=== PATIENT | female | born 1975 | race Caucasian/White ===

== ENCOUNTER 2020-12-25 11:23 | Emergency (ER) | payer OTHER, SELFPAY ==
--- NOTE | 2020-12-25 14:02 | HMH.EDUTC ---
[facility] [place] Clinical Impression: Encounter for laboratory testing for COVID-19 virus Disposition: Home, Self-Care Condition on Discharge: Good Instructions: Preventing the Spread of Coronavirus Discharge Instructions Additional Instructions: You have been tested for COVID19. Please quarantine yourself as if you are positive until test results received. Referrals: Duran Delgadillo [Primary Care Provider] - Time of Disposition: 14:08 Medical Decision Making - [place] Inquiry Pt receiving controlled substance: No [facility] [place] - General Stated complaint: covid test/symptoms Time Seen by Provider: 12/25/20 14:02 - History of Present Illness Provider Complaint: Loss of taste and smell since yesterday. No other symptoms. Onset (ago): day(s) (1) Relieving factors: none Exacerbating factors: none Associated symptoms: denies other symptoms Treatments prior to arrival: none - Related Data Allergies Allergy/AdvReac Type Severity Reaction Status Date / Time Penicillin Allergy Unknown Uncoded 04/16/17 15:13 [facility] History - Hepatitis A Screen Attestation statement:: This patient has been screened for Hepatitis A risk factors. I have reviewed the patient's past medical history: Yes ROS Obtained: Yes All systems reviewed & no additional complaints - Constitutional Constitutional: Reports other (loss of taste and smell) Physical Exam - General General appearance: alert, in no apparent distress - Head Head exam: normocephalic - Eye Eye exam: Present: PERRL - ENT ENT exam: Present: normal oropharynx, TM's normal bilaterally - Neck Neck exam: Present: normal inspection - Chest Chest inspection: Present: normal inspection, symmetric chest wall rise - Respiratory Respiratory exam: Present: normal lung sounds bilaterally - Cardiovascular Cardiovascular exam: Present: regular rate, normal rhythm - Neurological Exam Neurological exam: Present: alert, oriented X3 - Psychiatric Psychiatric exam: Present: normal affect, normal mood - Skin Skin exam: Present: warm, dry, intact
[2020-12-25 14:30] VITALS: BP 140/99; PULSE 76; RESP 12; TEMP 36.8; O2SAT 100; BMI 29.6
[2020-12-25 14:43] VITALS: BP 0/0; PULSE 0; RESP 0; TEMP -17.7; TEMP 0
== END 2020-12-25 14:44 | disposition home or self-care (01) ==
PROVIDERS: Emergency Provider Physician Assistant; PCP Family Medicine
DX: U07.1 COVID-19 (principal)
CPT/HCPCS: 99202; G0463; U0003

== ENCOUNTER → 2021-02-10 11:51 | Outpatient (CLI) | payer OTHER, SELFPAY | PROVIDERS: PCP Family Medicine; Visit Provider Family Medicine | DX: G47.30 Sleep apnea, unspecified (principal); R06.83 Snoring | CPT/HCPCS: G0399 ==

== ENCOUNTER 2022-01-15 14:41 | Emergency (ER) | payer BC, SELFPAY ==
[2022-01-15 15:30] VITALS: BMI 27.4
--- NOTE | 2022-01-15 15:31 | HMH.EDGENADL ---
Discharge Plan Disposition Patient Disposition: Home, Self-Care Referrals Follow up/Referrals: Duran Delgadillo [Primary Care Provider] - See instructions Clinical Impressions Clinical Impression: Palpitations Instructions Patient Instructions: Cardiac Arrhythmia (Alternative Therapy) Print Language Print Language: Guatemalan Discharge ED Provider: Trip Zuniga General Adult HPI General Chief complaint: Arrhythmia/Palpitations Stated complaint: heart is fluttering Time Seen by Provider: 01/15/22 15:31 Mode of Arrival: Ambulatory History of Present Illness HPI narrative: 46-year-old female without significant past medical history, presents with chief complaint of palpitations has been ongoing overall for about a year but worse over the past 3days has been more noticeable, states she had recently been started on a new asthma medication. Denies any chest pain, shortness of breath, nausea, vomiting, diaphoresis, lightheadedness or near syncopal episodes. No treatments sought for this prior to this visit, no clear exacerbating factors. She denies excessive caffeine use, denies any other new medications, thyroid issues Related Data Allergies Allergy/AdvReac Type Severity Reaction Status Date / Time Penicillin Allergy Unknown Uncoded 04/16/17 15:[address] [facility] Medical History (Updated 01/15/22 @ 17:12 by Trip Zuniga MD) Palpitations Social History Smoking Status: Never smoker alcohol intake: never current occupational status: employed Travel in the last 8 weeks: None ROS Obtained: Yes Systems reviewed as appropriate & no additional complaints except as documented Constitutional Constitutional: Reports system reviewed and no additional complaints, except as documented Eyes Eyes: Reports system reviewed and no additional complaints, except as documented ENT Ears, Nose, Mouth, and Throat: Reports system reviewed and no additional complaints, except as documented Cardiovascular Cardiovascular: Reports as per HPI and Reports palpitations Respiratory Respiratory: Reports system reviewed and no additional complaints, except as documented Gastrointestinal Gastrointestingal: Reports system reviewed and no additional complaints, except as documented Genitourinary Female Genitourinary: Reports system reviewed and no additional complaints, except as documented Musculoskeletal Musculoskeletal: Reports system reviewed and no additional complaints, except as documented Integumentary/Breasts Skin/Breast: Reports system reviewed and no additional complaints, except as documented Neurologic Neurologic: Reports system reviewed and no additional complaints, except as documented Endocrine Endocrine: Reports as per HPI and Reports palpitations Hematologic/Lymphatic Henatologic/Lymphatic: Reports system reviewed and no additional complaints, except as documented Allergic/Immunologic Allergic/Immunologic: Reports system reviewed and no additional complaints, except as documented Physical Exam General General appearance: alert and in no apparent distress Head Head exam: atraumatic, normocephalic and normal inspection Eye Eye exam: Present normal appearance, PERRL and EOMI ENT ENT exam: Present normal exam, normal oropharynx, mucous membranes moist, TM's normal bilaterally and normal external ear exam Neck Neck exam: Present normal inspection, full ROM and trachea midline; Absent meningismus or lymphadenopathy Chest Chest inspection: Present normal inspection and symmetric chest wall rise; Absent tenderness Respiratory Respiratory exam: Present normal lung sounds bilaterally; Absent respiratory distress Cardiovascular Cardiovascular exam: Present regular rate and normal rhythm; Absent JVD Abdominal Exam Abdominal exam: Present soft and normal bowel sounds; Absent distention, tenderness or guarding Extremities Exam Extremities exam: Present normal inspection, full ROM and norm
--- NOTE | 2022-01-15 15:32 | XR_ITS ---
FINAL REPORT CLINICAL HISTORY: SOB/CP FINDINGS: The heart size is normal. The mediastinum is normal. There is no focal infiltrate or edema. There are no pleural effusions. There is no pneumothorax. There is no osseous abnormality. IMPRESSION: No acute cardiopulmonary process Reviewed, Interpreted and Dictated by Margarito Franks MD Transcribed by Michael Greer Authenticated and [facility]
--- NOTE | 2022-01-15 15:34 | ECG_ITS ---
APPROVED REPORT Exam: Resting ECG HR:76 bpm ECG Measurements Heart Rate 76 AXES SD 154 P 44 QRSd 85 QRS 23 QT 361 T 37 QTc 391 Conclusion SINUS RHYTHM POSSIBLE RIGHT VENTRICULAR CONDUCTION DELAY [RSR (QR) IN V1/V2] BORDERLINE ECG UNCONFIRMED REPORT Electronically signed by : Wiliam Rubalcava MD 01/16/2022 21:10:31
[2022-01-15 15:35] VITALS: BP 148/90; PULSE 88; RESP 16; TEMP 36.8; O2SAT 98; BMI 29.9
[2022-01-15 16:00] VITALS: BP 139/94; PULSE 67; RESP 16; O2SAT 98
[2022-01-15 16:11] LABS: Basophils # 0.2 K/mm3 (0-0.2); Basophils % 1.7 % (0.1-2.0); Chloride 102 mmol/L (98-107); Eosinophils # 0.5 K/mm3 (0.0-0.4); Eosinophils % 3.6 % (0.1-12.0); Hematocrit 40.3 % (37.0-47.0); Hemoglobin 13.7 g/dL (12.2-16.2); Lymphocytes # 3.4 K/mm3 (0.7-4.5); Lymphocytes % 25.6 % (10-50); Mean Corpuscular HGB Conc 33.9 g/dL (31.8-35.4); Mean Corpuscular Hemoglobin 29.6 pg (27.0-31.2); Mean Corpuscular Volume 87.4 fl (81-99); Mean Platelet Volume 8.4 fl (7.4-10.4); Monocytes # 0.6 K/mm3 (0.1-1.0); Monocytes % 4.4 % (1.7-9.3); Neutrophils # 8.7 K/mm3 (1.8-7.8); Neutrophils % 64.7 % (37.0-80.0); Platelet Count 373 K/mm3 (142-424); Red Blood Count 4.61 M/mm3 (4.20-5.40); Red Cell Distribution Width 14.1 % (11.5-17.5); Sodium 140 mmol/L (136-145); White Blood Count 13.4 K/mm3 (4.8-10.8)
[2022-01-15 16:13] LABS: Blood Urea Nitrogen 7 mg/dl (7-17); Creatinine Clearance Estimated 132 mL/min (50-200); Estimated Glomerular Filt Rate 91 ml/min (>60); GFR (African American) 110 ML/MIN (>60)
[2022-01-15 16:14] LABS: Alanine Aminotransferase 32 U/L (12-78); Albumin Level 4.2 g/dl (3.5-5.0); Albumin/Globulin Ratio 1.4 (1.1-1.8); Alkaline Phosphatase 74 U/L (38-126); Aspartate Amino Transferase 33 U/L (14-36); Calcium 8.6 mg/dl (8.4-10.2); Carbon Dioxide 30 mmol/L (22.0-30.0); Glucose 134 mg/dl (74-100); Magnesium 1.8 mg/dl (1.6-2.3); Total Protein,Serum 7.2 g/dl (6.3-8.2)
[2022-01-15 16:15] LABS: Bilirubin,Total < 0.1 mg/dl (0.2-1.3)
[2022-01-15 16:28] LABS: Troponin I < 0.01 ng/ml (0.00-0.034)
[2022-01-15 16:30] VITALS: BP 147/92; PULSE 72; RESP 18; O2SAT 98
[2022-01-15 17:00] VITALS: BP 137/92; PULSE 69; RESP 16; O2SAT 99
[2022-01-15 18:00] VITALS: BP 135/86; PULSE 76; RESP 18; TEMP 36.8; O2SAT 99
== END 2022-01-15 18:00 | disposition home or self-care (01) ==
LOC: UTC 14:47 → ER 15:22
PROVIDERS: Emergency Provider Emergency Medicine; PCP Family Medicine
DX: R00.2 Palpitations (principal); R53.82 Chronic fatigue, unspecified; J45.909 Unspecified asthma, uncomplicated; Z88.0 Allergy status to penicillin
CPT/HCPCS: 71045; 80053; 83735; 84484; 85025; 93005; 99284

== ENCOUNTER 2024-06-12 02:19 | Emergency (ER) | payer BC, SELFPAY ==
[2024-06-12 02:20] VITALS: BP 162/85; PULSE 73; RESP 18; TEMP 36.8; O2SAT 100; BMI 32.6
--- NOTE | 2024-06-12 02:20 | ECG_ITS ---
APPROVED REPORT Exam: Resting ECG HR:69 bpm ECG Measurements Heart Rate 69 AXES MD 167 P 62 QRSd 80 QRS 51 QT 373 T 48 QTc 392 Conclusion SINUS RHYTHM NORMAL ECG Electronically signed by : DILLON VAZQUEZ, 06/12/2024 05:56:47
[2024-06-12 02:53] LABS: Alanine Aminotransferase 48 U/L (12-78); Albumin Level 4.5 g/dl (3.5-5.0); Albumin/Globulin Ratio 1.5 (1.1-1.8); Alkaline Phosphatase 76 U/L (38-126); Anion Gap 15.7 mEq/L (5-15); Aspartate Amino Transferase 37 U/L (14-36); Bilirubin,Total 0.4 mg/dl (0.2-1.3); Blood Urea Nitrogen 9 mg/dl (7-17); Calcium 9.1 mg/dl (8.4-10.2); Carbon Dioxide 28 mmol/L (22.0-30.0); Chloride 99 mmol/L (98-107); Creatinine Clearance Estimated 120 mL/min (50-200); Estimated Glomerular Filt Rate 67 ml/min (>60); GFR (African American) 82 ML/MIN (>60); Glucose 119 mg/dl (74-100); Potassium 3.7 mmoL/L (3.5-5.1); Sodium 139 mmol/L (136-145); Total Protein,Serum 7.5 g/dl (6.3-8.2)
[2024-06-12 02:57] LABS: Basophils # 0.1 K/mm3 (0-0.2); Basophils % 0.7 % (0.1-2.0); Eosinophils # 0.4 K/mm3 (0.0-0.4); Eosinophils % 3.4 % (0.1-12.0); Hematocrit 40.1 % (37.0-47.0); Hemoglobin 12.8 g/dL (12.2-16.2); Lymphocytes # 5.1 K/mm3 (0.7-4.5); Lymphocytes % 42.9 % (10-50); Mean Corpuscular HGB Conc 31.9 g/dL (31.8-35.4); Mean Corpuscular Hemoglobin 27.5 pg (27.0-31.2); Mean Corpuscular Volume 86.2 fl (81-99); Mean Platelet Volume 10.5 fl (7.4-10.4); Monocytes # 0.5 K/mm3 (0.1-1.0); Monocytes % 4.2 % (1.7-9.3); Neutrophils # 5.7 K/mm3 (1.8-7.8); Neutrophils % 48.6 % (37.0-80.0); Platelet Count 376 K/mm3 (142-424); Red Blood Count 4.65 M/mm3 (4.20-5.40); Red Cell Distribution Width 13.1 % (11.5-17.5); White Blood Count 11.8 K/mm3 (4.8-10.8)
[2024-06-12 03:10] LABS: Troponin I < 0.01 ng/ml (0.00-0.034)
[2024-06-12] MEDS: BELLADONNA ALKALOIDS 60 ML ML PO (03:20)
--- NOTE | 2024-06-12 03:51 | XR_ITS ---
PROCEDURE INFORMATION: Exam: XR Chest Exam date and time: 06/12/2024 3:52 AM Age: 48 years old Clinical indication: Pain; Chest pressure; Additional info: Cp TECHNIQUE: Imaging protocol: Radiologic exam of the chest. Views: 2 views. COMPARISON: CR XR CHEST PORTABLE 01/15/2022 3:47 PM FINDINGS: Lungs: Unremarkable. No consolidation. Pleural spaces: Unremarkable. No pleural effusion. No pneumothorax. Heart/Mediastinum: Unremarkable. No cardiomegaly. Bones/joints: Unremarkable. IMPRESSION: No acute findings.
--- NOTE | 2024-06-12 03:59 | HMH.EDCP ---
Discharge Plan Disposition Patient Disposition: Home, Self-Care Condition: Good Prescriptions Prescriptions: New sucralfate 1 gram tablet 1 g PO Q6H 7 Days Qty: 28 0RF Referrals Follow up/Referrals: Davide Dc II, MD [Staff Physician] - See instructions (chest pain, hx reflux/esophagitis, knows she needs EGD, prefers to be here) Provider,Referral, [Primary Care Provider] - See instructions Activity Restrictions/Add. Instructions Additional Instructions/Restrictions: You were evaluated in the ER and are appropriate for discharge at this time. Take the prescribed sucralfate as directed. Continue taking your other home medications as previously prescribed. Make an appointment with your primary care doctor for reevaluation in 2 to 3 days. Return to the ER with new, worsening, or otherwise concerning symptoms. Clinical Impressions Clinical Impression: Chest pain Print Language Print Language: Tajik Discharge ED Provider: Sussy Presley General Chief Complaint: Chest Pain Stated Complaint: Chest Pain Time Seen by Provider: 06/12/24 02:55 Mode of Arrival: Ambulatory Source of Information: Patient Limitations: No Limitations Description of Symptoms (Recalled from ER Triage Doc. by RN): Pt presents to ED for CP X 1 week. Pt states the pain was 6/10 while in bed, however now it is 1/10. Pt states it is midsternal and radiates L and R. Pt denies sickness, denies any muscle strain. Pt is A&O*4 and is well appearing. History of Present Illness HPI narrative: 48-year-old female presents to the ER for 1 week of chest pain. She states when laying down tonight it was a 6 out of 10 and she was not able to sleep, now it is a 1 out of 10. She states it is midsternal radiating bilaterally. She does describe a history of esophagitis and has been referred to an loss prevention officer. She states she is supposed to have an esophageal scraping, EGD, and colonoscopy coming up but she has not done it because she is a workaholic . Patient reports no cardiac history, she is not having vomiting or diarrhea, she states her pain starts in her abdomen and indicates to the mid epigastric region and then radiates upward. She states it is better now that she is upright. She takes omeprazole daily at home. No difficulty breathing. No fevers, chills, dysuria, hematuria, headache, dizziness, or other associated symptoms. Related Data Previous Rx's ?Medication ?Instructions ?Recorded sucralfate 1 gram tablet 1 g PO Q6H 1 week #28 tabs 06/12/24 Allergies Allergy/AdvReac Type Severity Reaction Status Date / Time Penicillin Allergy Unknown Uncoded 04/16/17 15:13 [facility] Disclaimer: The information contained in this section may have been updated after the patient was seen, as this information can be updated by other users. Medical History (Updated 06/12/24 @ 03:59 by Sussy Presley MD) Palpitations Social History (Updated 01/15/22 @ 17:13 by Trip Zuniga MD) Smoking Status: Former smoker alcohol intake: never current occupational status: employed Travel in the last 8 weeks: None ROS Obtained: Yes Systems reviewed as appropriate & no additional complaints except as documented Per HPI Physical Exam General General appearance: alert and in no apparent distress Head Head exam: atraumatic and normocephalic Eye Eye exam: Present PERRL and EOMI ENT ENT exam: Present mucous membranes moist Neck Neck exam: Present normal inspection and full ROM Chest Chest inspection: Present symmetric chest wall rise; Absent tenderness Respiratory Respiratory exam: Present normal lung sounds bilaterally; Absent respiratory distress, wheezes or stridor Cardiovascular Cardiovascular exam: Present regular rate and normal rhythm Abdominal Exam Abdominal exam: Present soft; Absent distention, tenderness, guarding or rebound Extremities Exam Extremities exam: Present full ROM Neurological Exam Neurological exam: Present alert, oriented X3, CN II-XII intact and normal gait; Absent motor sensory deficit Psychiatric Psychiatric exam: Present normal affect and normal mood Skin Skin exam: Present warm and dry HEART Score HEART Score HEART Score assessment performed?: Yes History (anamnesis): Slightly suspicious ECG: Normal Age: 45-65 years Risk factors: 1-2 risk factors Troponin: </= normal limit HEART Score: 2 Critical Care Critical Care Time Critical Care Time: No Medical Decision Making Medical Records Medical records reviewed: Yes I reviewed the patient's medical records. MR Comment: Previous encounter in our system was in December 2021. Patient was evaluated for palpitations. She had been started on a new asthma medication at that time. She had reassuring workup at that time and was discharged in stable condition. [place] Inquiry Pt receiving controlled substance: No Vital Signs Vital Signs: 06/12/24 02:20 Temperature 98.2 F Temperature Source Oral Pulse Rate [Left] 73 Respiratory Rate 18 Blood Pressure [Right Arm] 162/85 H Blood Pressure Mean [Right Arm] 110 02 Sat by Pulse Oximetry 100 Oxygen Delivery Method Room Air Lab Data Labs: Lab Results 06/12/24 02:26: WBC 11.8 H, RBC 4.65, Hgb 12.8, Hct 40.1, MCV 86.2, MCH 27.5, MCHC 31.9, RDW 13.1, Plt Count 376, MPV 10.5 H, Neut % (Auto) 48.6, Lymph % (Auto) 42.9, [place] % (Auto) 4.2, Eos % (Auto) 3.4, Baso % (Auto) 0.7, Neut # (Auto) 5.7, Lymph # (Auto) 5.1 H, [place] # (Auto) 0.5, Eos # (Auto) 0.4, Baso # (Auto) 0.1, Sodium 139, Potassium 3.7, Chloride 99, Carbon Dioxide 28, Anion Gap 15.7 H, BUN 9, Creatinine 0.90, Estimated Creat Clear 120, Estimated GFR 67, Est GFR ( Amer) 82, Glucose 119 H, Calcium 9.1, Total Bilirubin 0.4, AST 37 H, ALT 48, Alkaline Phosphatase 76, Troponin I < 0.01, Total Protein 7.5, Albumin 4.5, Globulin 3.0, Albumin/Globulin Ratio 1.5 06/12/24 02:26 06/12/24 02:26 Response Orders (Tests/Meds): ED MEDICATIONS Discontinued Medications Generic Name Dose Route Start Last Admin Trade Name Freq PRN Reason Stop Dose Admin Belladonna Alkaloids 60 ml 06/12/24 03:18 06/12/24 03:20 Belladonna Alkaloids 60 Ml Ml PO 06/12/24 03:19 60 ml ONCE ONE Administration ORDERS Category Date Time Status CXR 2 view (NOT portable) [XR chest 2V] Stat Exams 06/12/24 03:51 Ordered CBC w/Auto Diff [Complete Blood Count Auto Diff] Stat Lab 06/12/24 02:26 Completed Comprehensive Metabolic Panel Stat Lab 06/12/24 02:26 Completed HIV Combo Routine Lab 06/12/24 02:26 Received Hepatitis C Ab Qual. W/ RFX Routine Lab 06/12/24 02:26 Received Troponin I Q3H Lab 06/12/24 05:45 Ordered Troponin I Q3H Lab 06/12/24 08:45 Ordered Troponin I Stat Lab 06/12/24 02:26 Completed MDM Narrative Medical Decision Narrative: In summary, this 48-year-old female with comorbidities described in the HPI which are not at goal therapy presents to the emergency department today with chest pain. On initial evaluation patient is hemodynamically stable, afebrile, chest pain is not reproducible on exam, she states it is better now that she is sitting upright, she has good vitals, clear lungs bilaterally, no peripheral edema, cardiac exam benign, abdominal exam normal, GCS 15. Differential diagnosis includes but is not limited to ACS, I considered PE but patient is PERC negative, also considered esophageal spasm, exacerbation of previously known esophagitis, electrolyte abnormality, pneumothorax, pneumonia, among others. Based on these concerns, I ordered serum labs, cardiac workup, chest x-ray. ECG personally interpreted demonstrates normal sinus rhythm, rate 69, normal axis, normal ME and QTc, no STEMI. Labs personally reviewed demonstrate labs are very reassuring, mild leukocytosis, nonactionable CMP, patient's troponin undetectably low less than 0.01 which is significantly reassuring in the setting of patient having 6 days of pain, if it was cardiac in etiology I would expect the troponin to be elevated by now. She will troponin not indicated. Patient received GI cocktail. Her symptoms have completely resolved XR personally interpreted demonstrates no acute thoracic abnormality, see radiology read for final interpretation.. On reassessment patient remains pain-free, resting comfortably. She is appropriate for discharge at this time. I prescribed sucralfate for additional gastritis/esophagitis management. She was referred to Dr. Dc with GI after reporting she does not like [facility] where she is currently being managed for her symptoms. Patient was given instructions on symptomatic management, follow up instructions, and return precautions for the emergency department. Patient indicated understanding and was discharged in stable condition.
[2024-06-12 04:09] VITALS: BP 154/98; PULSE 59; RESP 20; TEMP 36.9; O2SAT 100
[2024-06-12 05:10] LABS: HIV Combo NEGATIVE (Negative)
[2024-06-12 05:17] LABS: Hepatitis C Ab Qual. W/ RFX NEGATIVE (Negative)
== END 2024-06-12 04:20 | disposition home or self-care (01) ==
PROVIDERS: Emergency Provider Emergency Medicine; PCP Family Medicine
DX: R07.9 Chest pain, unspecified (principal)
CPT/HCPCS: 71046; 80053; 84484; 85025; 86803; 87389; 93005; 99284

== ENCOUNTER 2024-08-04 12:04 | Outpatient (CLI) | payer BC, SELFPAY ==
--- NOTE | 2024-08-04 12:08 | XR_ITS ---
FINAL REPORT CLINICAL HISTORY: Foot Pain COMPARISON: None FINDINGS: Three views of the right foot show no evidence of acute displaced fracture or dislocation of the visualized bony architecture. There are mild degenerative changes of the 1st tarsometatarsal joint. The remaining joint spaces are unremarkable. IMPRESSION: Degenerative changes medial midfoot. Reviewed, Interpreted and Dictated by Jl Keller MD Transcribed by Cece Cooney Authenticated and . [facility]
--- NOTE | 2024-08-04 12:08 | XR_ITS ---
FINAL REPORT CLINICAL HISTORY: Foot Pain COMPARISON: None FINDINGS: Three views of the left foot show no evidence of acute displaced fracture or dislocation of the visualized bony architecture. The joint spaces appear normal. IMPRESSION: Unremarkable exam. Reviewed, Interpreted and Dictated by Jl Keller MD Transcribed by Cece Cooney Authenticated and [facility]
== END 2024-08-04 23:59 | disposition home or self-care (01) ==
LOC: RAD 12:06
PROVIDERS: PCP Family Medicine; Visit Provider Podiatrist
DX: M79.671 Pain in right foot (principal); M79.672 Pain in left foot
CPT/HCPCS: 73630